=== PATIENT | female | born 1980 | race Caucasian/White ===

== ENCOUNTER → 2021-09-14 | Outpatient (CLI) | payer OTHER | LOC: M SOG 07:57 | PROVIDERS: ATTEND Orthopaedic Surgery Hand Surgery | DX: M79.641 Pain in right hand (principal) ==

== ENCOUNTER 2022-09-09 07:45 | Day surgery (SDC) | payer OTHER ==
[~2022-09-09] VITALS: Ht 167.6 cm; Wt 90.0 kg
[~2022-09-09 07:45] MED LIST: IBUP-359 PO
[2022-09-09] MEDS ORDERED: propofoL 200 MG/20 ML VIAL As Ordered ONE (08:49)
[2022-09-09] MEDS ORDERED: ONDANSETRON 4MG 2ML VIAL As Ordered ONE (08:49)
[2022-09-09] MEDS ORDERED: LIDOCAINE 2% 100MG/5ML SDV (FOR ANES.) As Ordered ONE (08:49)
[2022-09-09] MEDS ORDERED: ACETAMINOPHEN 1000MG 100ML IV BAG As Ordered ONE (08:50)
[2022-09-09] MEDS ORDERED: fentaNYL 100 MCG/2 ML INJECTION As Ordered ONE (08:50)
[2022-09-09] MEDS ORDERED: KETOROLAC 60MG 2ML VIAL As Ordered ONE (08:50)
[2022-09-09] MEDS ORDERED: MIDAZOLAM INJ 2MG/2ML VIAL As Ordered ONE (08:50)
[2022-09-09] MEDS ORDERED: BACITRACIN OINTMENT 30GM TUBE As Ordered ONE (09:19)
[2022-09-09] MEDS ORDERED: oxyCODONE 5MG TAB PO PRN (10:10)
[2022-09-09] MEDS ORDERED: LR 1,000 ML IV SCH (10:10)
[2022-09-09] MEDS ORDERED: ONDANSETRON 4MG 2ML VIAL IV PRN (10:10)
[2022-09-09] MEDS ORDERED: fentaNYL 100 MCG/2 ML INJECTION IV PRN (10:10)
[2022-09-09] MEDS ORDERED: HYDROMORPHONE HCL 0.5 MG/ 0.5 ML SYRINGE IV PRN (10:10)
[2022-09-09 11:26] VITALS: BP 124/73; TEMP 97.4; O2SAT 99
== END 2022-09-09 11:38 | disposition home or self-care (01) ==
LOC: M SDC 07:45
PROVIDERS: ATTEND Orthopaedic Surgery Hand Surgery
DX: M65.4 Radial styloid tenosynovitis [de Quervain] (principal); K21.9 Gastro-esophageal reflux disease without esophagitis; Z88.7 Allergy status to serum and vaccine; Z91.040 Latex allergy status; Z91.013 Allergy to seafood; Z88.8 Allergy status to other drugs, medicaments and biological substances; F17.210 Nicotine dependence, cigarettes, uncomplicated
CPT/HCPCS: 25118; J0131; J1100; J1885; J2250; J2405; J3010; S0020